=== PATIENT | male | born 1965 | race Caucasian/White ===

== ENCOUNTER 2018-08-28 11:19 | Inpatient (IN) | payer MEDICAID ==
[2018-08-28 11:19] VITALS: BMI 27.1
[2018-08-28] MEDS ORDERED: Sodium Chloride 0.9% 1,000 ML IV ONE (11:54)
--- NOTE | 2018-08-28 11:54 | C.PDOC ---
History Of Present Illness PERSIST LLQ HERNIA PAIN X 1 YR. S/P HERNIA REPEAT LLQ REPEAT 08/2017 BUT STILL W INTERMIT PAIN. CURRENTLY ASYMPT. NO FEVER, NVD. REFERRED DR MCKEON EXAM NAD NONTOXIC ABD NEG REMAINDER NEG Time Seen by Provider: 08/28/18 11:40 Chief Complaint (Nursing): Abdominal Pain History Per: Patient History/Exam Limitations: no limitations Onset/Duration Of Symptoms: Days Current Symptoms Are (Timing): Still Present Severity: Moderate Past Medical History Reviewed: Historical Data, Nursing Documentation, Vital Signs Vital Signs: Last Vital Signs Temp 97.7 F 08/28/18 11:21 Pulse 57 L 08/28/18 11:21 Resp 16 08/28/18 11:21 BP 129/80 08/28/18 11:21 Pulse Ox 100 08/28/18 11:21 - Medical History PMH: Hyperlipidemia Denies: Depression Other Surgeries: Hx of surgeries Family History: States: No Known Family Hx - Social History Hx Tobacco Use: No Hx Alcohol Use: No Hx Substance Use: No - Immunization History Hx Tetanus Toxoid Vaccination: No Hx Influenza Vaccination: No Hx Pneumococcal Vaccination: No Review Of Systems Except As Marked, All Systems Reviewed And Found Negative. Constitutional: Negative for: Fever, Chills Gastrointestinal: Positive for: Other (LLQ hernia pain( currently resolved)). Negative for: Nausea, Vomiting, Diarrhea Physical Exam - Physical Exam Appears: Non-toxic, No Acute Distress Skin: Normal Color, Warm, Dry Head: Atraumatic, Normacephalic Eye(s): bilateral: Normal Inspection Cardiovascular: Rhythm Regular Respiratory: Other (NARD) Gastrointestinal/Abdominal: Normal Exam, Soft, No Tenderness, No Guarding, No Rebound Neurological/Psych: Oriented x3, Normal Speech ED Course And Treatment - Laboratory Results Result Diagrams: 08/28/18 12:16 08/28/18 12:16 ECG: Interpreted By Me ECG Rhythm: Sinus Bradycardia ECG Interpretation: Normal Rate From EC O2 Sat by Pulse Oximetry: 100 (RA) Pulse Ox Interpretation: Normal Progress - Re-Evaluation Re-evaluation Note: 08/28/18 11:15 D/W DR MCKEON STATES TO ADMIT TO HIS SERVICE, DX INCARCERATED HERNIA IN OUTPT. PREOP TESTING ONLY. - Data Reviewed Data Reviewed: Lab, Diagnostic imaging, EKG, Old records Medical Decision Making Medical Decision Making: Plan: --Labs --CXR --UA --IV Fluids Disposition Counseled Patient/Family Regarding: Studies Performed, Diagnosis - Disposition Disposition: HOSPITALIZED Disposition Time: 11:53 Condition: SERIOUS - POA Present On Arrival: None - Clinical Impression Clinical Impression: Incarcerated hernia - Scribe Statement The provider has reviewed the documentation as recorded by the Wilfredo Chavarria Provider Attestation: All medical record entries made by the Wilfredo were at my direction and personally dictated by me. I have reviewed the chart and agree that the record a ccurately reflects my personal performance of the history, physical exam, medical decision making, and the department course for this patient. I have also personally directed, reviewed, and agree with the discharge instructions and disposition.
[2018-08-28 12:30] LABS: URINE BILIRUBIN NEGATIVE (NEGATIVE); URINE BLOOD NEGATIVE (NEGATIVE); URINE CLARITY Clear (Clear); URINE COLOR Yellow (YELLOW); URINE GLUCOSE (UA) NORMAL (Normal); URINE LEUKOCYTE ESTERASE NEG Leu/uL (Negative); URINE PROTEIN NEGATIVE (NEGATIVE); URINE UROBILINOGEN NORMAL mg/dL (0.2-1.0)
[2018-08-28 12:35] LABS: BASO % 1.1 % (0.0-2.0); EOS # 0.1 K/uL (0.0-0.7); EOS % 3.9 % (0.0-4.0); HEMOGLOBIN 14.8 g/dL (12.0-18.0); LYMPH # 1.9 K/uL (1.0-4.3); LYMPH % 65.7 % (20.0-40.0); MEAN CELL VOLUME 81.8 fL (80.0-94.0); MEAN CORPUSCULAR HEMOGLOBIN 28.6 pg (27.0-31.0); MEAN CORPUSCULAR HGB CONC 34.9 g/dL (33.0-37.0); MEAN PLATELET VOLUME 7.3 fL (7.2-11.7); MONO # 0.2 K/uL (0.0-0.8); MONO % 8.4 % (0.0-10.0); NEUT # 0.6 K/uL (1.8-7.0); NEUT % 20.9 % (50.0-75.0); NRBC % 0.1 % (0.0-2.0); RBC 5.17 Mil/uL (4.40-5.90); RED CELL DISTRIBUTION WIDTH 13.5 % (11.5-14.5); WHITE BLOOD COUNT 2.9 K/uL (4.8-10.8)
[2018-08-28 12:44] LABS: INR 1.2; PROTHROMBIN TIME 12.7 SECONDS (9.7-12.2)
[2018-08-28 12:54] LABS: ALB/GLOB RATIO 1.6 (1.0-2.1); ALBUMIN 5.1 g/dL (3.5-5.0); ALT/SGPT 25 U/L (21-72); AST/SGOT 29 U/L (17-59); BLOOD UREA NITROGEN 13 mg/dL (9-20); CALCIUM 9.3 mg/dl (8.6-10.4); GFR NON-AFRICAN AMERICAN > 60
--- NOTE | 2018-08-28 14:04 | RAD ---
HISTORY: Pre Op COMPARISON: None available. TECHNIQUE: Chest, one view. FINDINGS: Examination limited by habitus. LUNGS: Subsegmental bibasilar atelectasis. No focal consolidation. Please note that chest x-ray has limited sensitivity for the detection of pulmonary masses. PLEURA: No significant pleural effusion identified. No definite pneumothorax . CARDIOVASCULAR: The cardiomediastinal silhouette appears within normal limits of size. No significant atherosclerotic calcification present. OSSEOUS STRUCTURES: Degenerative changes. VISUALIZED UPPER ABDOMEN: Unremarkable. OTHER FINDINGS: None. IMPRESSION: Subsegmental bibasilar atelectasis.
[2018-08-28] MEDS ORDERED: Propofol 10 mg/ml Inj (20 ML) ONE (15:50)
[2018-08-28] MEDS ORDERED: Succinylcholine Chloride 20 mg/ml Syr (5 ml) IV ONE (15:50)
[2018-08-28] MEDS ORDERED: Neostigmine Methylsulfate 3mg/3ml Syringe IV ONE (15:50)
[2018-08-28] MEDS ORDERED: ceFAZolin IV 1 gm in Dextrose 1 GM/50 ML BAG IVPB ONE ×2 (15:58→16:11)
[2018-08-28] MEDS: Bupivacaine 0.25% 20 ML INJ IJ ONE ×2 (16:15→16:34)
[2018-08-28] MEDS ORDERED: Lactated Ringer's 1,000 ML IV SCH (16:45)
[2018-08-28] MEDS ORDERED: Dextrose 5%/0.45% NS 1,000 ML IV SCH (18:15)
[2018-08-28] MEDS: Oxycodone/Acetaminophen 5/325 mg Tab PO PRN (22:03)
[2018-08-28] MEDS: Enoxaparin 30 mg Syringe SC SCH (22:04)
[2018-08-29 01:43] VITALS: RESP 20
[2018-08-29] MEDS: Oxycodone/Acetaminophen 5/325 mg Tab PO PRN ×2 (02:21→13:43)
--- NOTE | 2018-08-29 07:45 | OP ---
PROCEDURE DATE: 08/28/2018 PREOPERATIVE DIAGNOSIS: Recurrent incarcerated left inguinal hernia. POSTOPERATIVE DIAGNOSIS: Recurrent incarcerated left inguinal hernia. PROCEDURE PERFORMED: Repair of recurrent incarcerated left inguinal hernia with mesh. SURGEON: Alec Serrano MD ANESTHESIA: General. BLOOD LOSS: 30 mL. POSTOPERATIVE CONDITION: Stable. INDICATIONS FOR SURGERY: This is a 53-year-old male one year status post a repair of a left inguinal hernia at the [facility] today. He presented to my office last week with recurrence and was admitted today with a diagnosis of an incarcerated left inguinal hernia. GROSS FINDINGS: There was an incarcerated indirect left inguinal hernia containing omentum. There was no other abnormal findings. DESCRIPTION OF PROCEDURE: The patient was taken to the operating room, general anesthesia was administered and the left groin area was prepped and draped. Standard left groin incision was made above the previous incision, which was somewhat low and carried down to the external oblique aponeurosis, which was opened and dissected free superiorly and inferiorly. The spermatic cord was then looped with a [place] drain. During this maneuver, there was a fair amount of bleeding from the cord. The testicular artery was isolated and repaired with a 7-0 Prolene. Flow was confirmed by Doppler. Next, a large pelvic lipoma measuring 5 to 6 cm was removed and sent for specimen. The hernia sac was identified within the spermatic cord, dissected free down to its base and inverted. An extra large ProLoop plug was inserted and sutured in place with interrupted 2-0 Prolene suture. The wound was irrigated with copious amounts of saline solution. The wound was closed in layers with heavy Monocryl, subcuticular Monocryl and skin clips. The patient tolerated the procedure well. Returned to recovery room in stable condition. Alec Serrano MD
[2018-08-29 07:49] LABS: BASO % 0.5 % (0.0-2.0); EOS % 0.4 % (0.0-4.0); HEMOGLOBIN 13.2 g/dL (12.0-18.0); LYMPH # 2.4 K/uL (1.0-4.3); LYMPH % 34.2 % (20.0-40.0); MEAN CELL VOLUME 80.1 fL (80.0-94.0); MEAN CORPUSCULAR HEMOGLOBIN 28.3 pg (27.0-31.0); MEAN CORPUSCULAR HGB CONC 35.3 g/dL (33.0-37.0); MEAN PLATELET VOLUME 7.2 fL (7.2-11.7); MONO # 0.5 K/uL (0.0-0.8); MONO % 7.1 % (0.0-10.0); NEUT # 4.1 K/uL (1.8-7.0); NEUT % 57.8 % (50.0-75.0); NRBC % 0.2 % (0.0-2.0); RBC 4.65 Mil/uL (4.40-5.90); RED CELL DISTRIBUTION WIDTH 13.4 % (11.5-14.5)
[2018-08-29 07:54] LABS: WHITE BLOOD COUNT 7.2 K/uL (4.8-10.8)
[2018-08-29 08:08] LABS: BLOOD UREA NITROGEN 10 mg/dL (9-20); GFR NON-AFRICAN AMERICAN > 60
[2018-08-29 08:09] LABS: CALCIUM 8.6 mg/dl (8.6-10.4)
[2018-08-29 08:23] VITALS: BP 108/64; PULSE 79; TEMP 98; O2SAT 94
[2018-08-29] MEDS: Enoxaparin 30 mg Syringe SC SCH (10:01)
[2018-08-29] MEDS ORDERED: Influenza Vaccine 60 MCG/0.5 ML SYR (3 yr & up) IM ONE (11:45)
[2018-08-29] MEDS ORDERED: Pneumococcal 23-Valent Vaccine IM ONE (11:45)
--- NOTE | 2018-08-29 17:11 | CARD ---
APPROVED REPORT Date of service: 08/28/2018 EKG Measurement Heart [id number] <Conclusion> Sinus bradycardia Otherwise normal ECG
[2018-08-29] MEDS ORDERED: ceFAZolin IV 1 gm in Dextrose 1 GM/50 ML BAG IVPB SCH (19:00)
== END 2018-08-29 14:09 | disposition home or self-care (01) | DRG 228 ==
LOC: C.ER 11:19 → C.SDS 12:01 → C.6T 18:12
PROVIDERS: ADMIT Surgery; ATTEND Surgery
PROC: 0JBC0ZZ Excision of Pelvic Region Subcutaneous Tissue and Fascia, Open Approach (ICD-10-PCS; 2018-08-28)
PROC: 0YU60JZ Supplement Left Inguinal Region with Synthetic Substitute, Open Approach (ICD-10-PCS; principal; 2018-08-28 14:15)
DX: K40.31 Unilateral inguinal hernia, with obstruction, without gangrene, recurrent (principal); D17.79 Benign lipomatous neoplasm of other sites; E78.5 Hyperlipidemia, unspecified

== ENCOUNTER 2018-08-28 16:43 | Day surgery (SDC) | payer MEDICAID ==
[2018-08-23 10:08] VITALS: BMI 27.1
[~2018-08-28 16:43] MED LIST: Neostigmine Methylsulfate 3mg/3ml Syringe IV ONE; Oxycodone/Acetaminophen 5/325 mg Tab PO PRN; Propofol 10 mg/ml Inj (20 ML) ONE; Succinylcholine Chloride 20 mg/ml Syr (5 ml) IV ONE
[2018-08-28] MEDS ORDERED: Dextrose 5%/0.45% NS 1,000 ML IV SCH (16:45)
[2018-08-29] MEDS ORDERED: Pneumococcal 23-Valent Vaccine IM ONE ×2 (10:00)
[2018-08-29] MEDS ORDERED: Influenza Vaccine 60 MCG/0.5 ML SYR (3 yr & up) IM ONE (10:00)
== END 2018-08-28 16:44 | disposition home or self-care (01) ==
LOC: C.SDS 16:43 → INTOOBSV 16:44 → UNDOADMOB 16:44 → OBSVTOIN 16:44 → EDLOC 16:44 → C.SDS 16:44 → UNDODISIN 16:45 → C.9S 16:45 → UNDOADMIN 16:45 → C.SDS 17:05 → UNDOADMIN 17:30 → C.9S 17:30 → C.SDS 18:28 → C.9S 18:44 → C.SDS 18:49 → UNDODISOB 18:54 → C.9S 20:32 → C.SDS 20:32 → C.9S 08-29 09:18
PROVIDERS: ATTEND Surgery
DX: K40.90 Unilateral inguinal hernia, without obstruction or gangrene, not specified as recurrent (principal); Z53.20 Procedure and treatment not carried out because of patient's decision for unspecified reasons
CPT/HCPCS: 49505; P000X